=== PATIENT | female | born 1955 | race Caucasian/White ===

== ENCOUNTER → 2017-01-19 | Outpatient (REF) ==
[~2017-01-19] MED LIST: BYSTOLIC10 MG PO; CLINDAMYCIN HC300 MG PO; HYDROCHLOR50 MG PO; KEPPRA 500MG500 MG PO; KEPPRA500 MG PO; LEVOTHYROXINE PO; LEXAPRO20 MG PO; PREMARIN 1.251.25 MG PO; ROXICODONE30 MG PO; SYNTHROID 0.10.15 MG PO; TOPROL XL50 MG PO; ULTRAM50 MG PO
[2017-01-19 19:37] LABS: THYROID STIMULATING HORMONE 0.288 uIU/mL (0.465-4.680)
== END ==
LOC: ZLAB.WCH 18:06
PROVIDERS: Nurse Practitioner Family
DX: Z01.89 Encounter for other specified special examinations (principal)

== ENCOUNTER → 2017-03-09 | Outpatient (REF) ==
[2017-03-09 20:21] LABS: THYROID STIMULATING HORMONE < 0.015 uIU/mL (0.465-4.680)
== END ==
LOC: ZLAB.WCH 19:01
PROVIDERS: Internal Medicine
DX: Z01.89 Encounter for other specified special examinations (principal)

== ENCOUNTER → 2017-04-26 | Outpatient (REF) ==
[2017-04-26 22:51] LABS: THYROID STIMULATING HORMONE 0.302 uIU/mL (0.465-4.680)
== END ==
LOC: ZLAB.WCH 18:41
PROVIDERS: Internal Medicine
DX: Z01.89 Encounter for other specified special examinations (principal)

== ENCOUNTER → 2017-12-06 | Outpatient (REF) ==
[2017-12-06 16:02] LABS: THYROID STIMULATING HORMONE 0.073 uIU/mL (0.465-4.680)
== END ==
LOC: ZLAB.WCH 15:09
PROVIDERS: Internal Medicine
DX: Z01.89 Encounter for other specified special examinations (principal)

== ENCOUNTER → 2018-02-28 | Outpatient (REF) | LOC: ZLAB.WCH 15:54 | DX: Z01.89 Encounter for other specified special examinations (principal) ==

== ENCOUNTER → 2018-06-26 | Outpatient (REF) ==
[2018-06-26 15:23] LABS: THYROID STIMULATING HORMONE 1.86 uIU/mL (0.465-4.680)
== END ==
LOC: ZLAB.WCH 14:25
PROVIDERS: Internal Medicine
DX: Z01.89 Encounter for other specified special examinations (principal)

== ENCOUNTER → 2018-09-05 | Outpatient (CLI) | payer OTHER | LOC: COL.RAD 13:51 | DX: G40.319 Generalized idiopathic epilepsy and epileptic syndromes, intractable, without status epilepticus (principal); G31.9 Degenerative disease of nervous system, unspecified; I67.82 Cerebral ischemia; I61.9 Nontraumatic intracerebral hemorrhage, unspecified | CPT/HCPCS: A9585 ==